=== PATIENT | male | born 1960 | race Caucasian/White ===

== ENCOUNTER 2017-06-15 21:58 | Inpatient (IN) | payer SELFPAY ==
[~2017-06-15] VITALS: Ht 175.3 cm; Wt 111.1 kg
[2017-06-16 00:44] LABS: BASOPHIL % 0.4 % (0-2); PLATELET COUNT 272 x10^3mcL (130-400); RED CELL DISTRIBUTION WIDTH 12.2 % (11.5-14.5)
[2017-06-16 01:04] LABS: CALCIUM 8.7 mg/dL (8.5-10.1); CARBON DIOXIDE 24.3 mmol/L (21-32); CHLORIDE SERUM 103 mmol/L (98-107); GFR1 > 60 mL/min; GLUCOSE SERUM 303 mg/dL (74-106); POTASSIUM SERUM 3.7 mmol/L (3.5-5.1); SODIUM SERUM 140 mmol/L (136-145)
[2017-06-16 01:12] LABS: MAGNESIUM 1.9 mg/dL (1.8-2.4); PHOSPHOROUS 3.5 mg/dL (2.5-4.9)
[2017-06-16 01:13] LABS: ALBUMIN 3.7 g/dL (3.4-5.0); ALKALINE PHOSPHATASE 73 U/L (46-116); ALT/SGPT 25 U/L (16-63); AST/SGOT 13 U/L (15-37); BILIRUBIN TOTAL 0.79 mg/dL (0.20-1.00); CHOLESTEROL/HDL RATIO 3.8; TOTAL PROTEIN, SERUM 7.2 g/dL (6.4-8.2)
[2017-06-16 01:17] LABS: T3 TOTAL 1.17 ng/mL
[2017-06-16 01:34] LABS: FREE T4 1.12 ng/dL (0.76-1.46); FREE THYROXINE INDEX 3.3 ug/dL (1.4-4.5); T4(THYROXINE) 8.8 ug/dL (4.7-13.3)
[2017-06-16 02:21] VITALS: BP 159/95
[2017-06-16 05:32] VITALS: BP 131/78
[2017-06-16 09:36] VITALS: BP 152/90
[2017-06-16 13:40] VITALS: BP 136/82
[2017-06-16 17:01] VITALS: BP 148/85
[2017-06-16 17:09] LABS: microscopic required? YES; urine erythrocyte 3+ (NEGATIVE)
[2017-06-16 17:24] LABS: AMPHETAMINE QUAL UR NONE DETECTED (NEG <=1000)
[2017-06-16 21:39] VITALS: BP 142/82
[2017-06-17 06:18] VITALS: BP 135/78
[2017-06-17 06:25] LABS: BASOPHIL % 0.5 % (0-2); PLATELET COUNT 248 x10^3mcL (130-400); RED CELL DISTRIBUTION WIDTH 12.9 % (11.5-14.5)
[2017-06-17 06:46] LABS: CALCIUM 8.8 mg/dL (8.5-10.1); CARBON DIOXIDE 28.5 mmol/L (21-32); CHLORIDE SERUM 106 mmol/L (98-107); CREATININE SERUM 0.9 mg/dL (0.7-1.3); GFR1 > 60 mL/min; GLUCOSE SERUM 204 mg/dL (74-106); MAGNESIUM 2.3 mg/dL (1.8-2.4); PHOSPHOROUS 4.4 mg/dL (2.5-4.9); POTASSIUM SERUM 4.1 mmol/L (3.5-5.1); SODIUM SERUM 142 mmol/L (136-145)
[2017-06-17 10:37] VITALS: BP 132/80
[2017-06-17 12:58] VITALS: BP 148/86
[2017-06-17 20:35] VITALS: BP 147/71
[2017-06-18 06:36] LABS: BASOPHIL % 0.4 % (0-2); PLATELET COUNT 243 x10^3mcL (130-400); RED CELL DISTRIBUTION WIDTH 13.1 % (11.5-14.5)
[2017-06-18 07:09] LABS: CALCIUM 8.3 mg/dL (8.5-10.1); CARBON DIOXIDE 26.8 mmol/L (21-32); CHLORIDE SERUM 104 mmol/L (98-107); CREATININE SERUM 0.9 mg/dL (0.7-1.3); GFR1 > 60 mL/min; GLUCOSE SERUM 170 mg/dL (74-106); MAGNESIUM 2.1 mg/dL (1.8-2.4); PHOSPHOROUS 3.5 mg/dL (2.5-4.9); POTASSIUM SERUM 3.5 mmol/L (3.5-5.1); SODIUM SERUM 141 mmol/L (136-145)
[2017-06-18 10:37] VITALS: BP 137/76
[2017-06-18] MEDS ORDERED: NORCO1 TA2 PO (12:48)
[2017-06-18] MEDS ORDERED: COLACE100 MG PO (12:48)
[2017-06-18] MEDS ORDERED: METFORMIN HCL500 MG PO (12:49)
[2017-06-18] MEDS ORDERED: GLUCOTROL5 MG PO (12:51)
[2017-06-18 13:27] VITALS: BP 141/84
[2017-06-18 13:28] VITALS: BP 141/84
[2017-06-18] MEDS ORDERED: LIPI20 PO (13:49)
[2017-06-18] MEDS ORDERED: ZES5 PO (13:49)
[2017-06-18] MEDS ORDERED: LAC PO (13:51)
[2017-06-18] MEDS ORDERED: BACTRIM DS1 TAB PO (13:51)
== END 2017-06-18 14:33 | disposition home or self-care (01) | DRG 728 ==
LOC: ED 21:58 → DU 06-16 00:15
PROVIDERS: Emergency Medicine; Family Medicine; Urology
PROC: 0H8AXZZ Division of Inguinal Skin, External Approach (ICD-10-PCS; 2017-06-16)
PROC: 0VTTXZZ Resection of Prepuce, External Approach (ICD-10-PCS; principal; 2017-06-17 17:00)
DX: N47.1 Phimosis (principal); N48.1 Balanitis; R33.8 Other retention of urine; I10 Essential (primary) hypertension; E78.5 Hyperlipidemia, unspecified; E03.9 Hypothyroidism, unspecified; E66.9 Obesity, unspecified; Z68.36 Body mass index [BMI] 36.0-36.9, adult
CPT/HCPCS: 82962; 83880; 84439; 94150; J0690; J0696; J2001; J2250; J2405; J2704; J3010; J3490; J7030; Q0092